=== PATIENT | male | born 1955 ===

== ENCOUNTER 2018-03-31 06:47 | Day surgery (SDC) | payer BC ==
[~2018-03-31 06:47] MED LIST: Buffered Lidocaine 0.9% SYRIN* 5 ML/SYR SYRINGE INTRADERM ONE
[2018-03-31] MEDS ORDERED: Midazolam* 1 MG/ML 2 ML VIAL (2 MG) ONE (07:59)
[2018-03-31 08:40] VITALS: BP 112/85
[2018-03-31] MEDS ORDERED: Ketorolac 0.5% OPHTH (NF) 0.5 % 5 ML BTL ONE (11:50)
[2018-03-31] MEDS ORDERED: Lidocaine 1%* 5 ML VIAL ONE (11:50)
[2018-03-31] MEDS ORDERED: Phenylephrine 2.5% OPTH.SOL* 2 ML BTL ONE (11:50)
[2018-03-31] MEDS ORDERED: Tropicamide 1% OPTH.SOL* BTL ONE (11:50)
[2018-03-31] MEDS ORDERED: Cyclopentolate 1% OPTH.SOL* 2 ML BTL ONE (11:50)
[2018-03-31] MEDS ORDERED: Tetracaine 0.5% OPTH.SOL 4 ML* 1 DROP BTL ONE (11:50)
[2018-03-31] MEDS ORDERED: Neomycin/Polymy/Dex OPHTH.OIN* 3.5 GM ONE (11:50)
--- NOTE | 2018-04-01 02:16 | OP ---
DATE OF OPERATION: 03/31/18 - [facility] DATE OF : 53 SURGEON: Sebastian Ovalle MD BEATER LEAD: None. ANESTHESIA: Topical with intravenous sedation. PRE-OP DIAGNOSIS: Cataract, right eye, with astigmatism. POST-OP DIAGNOSIS: Cataract, right eye, with astigmatism. OPERATIVE PROCEDURE: Phacoemulsification and cataract extraction with posterior chamber toric intraocular lens implant, right eye. COMPLICATIONS: None. ESTIMATED BLOOD LOSS: None. DESCRIPTION OF PROCEDURE: The patient was seen preoperatively, where he was placed in an upright position. A rachel was made at the 6 o'clock position of the cornea near the limbus of the right eye. The patient was subsequently brought to the operating room where he was given a small amount of intravenous sedation and a drop of tetracaine. He was prepped and draped in the usual sterile fashion for ophthalmic surgery and attention was directed to the right eye where a speculum was placed. A paracentesis was created at the 11 o'clock position and 0.12 cc of 1% preservative-free lidocaine was injected into the anterior chamber followed by DisCoVisc. The eye was digitally stabilized where a 2.75-mm keratome was used to create a triplanar clear corneal incision at the 9 o'clock position. A continuous curvilinear capsulorrhexis was created with a cystotome and Utrata forceps. BSS on a cannula was used to hydrodissect the lens from the capsule. Phacoemulsification was performed in a divide-and- conquer technique to create 4 fragments, which were removed. Residual cortical material was removed with irrigation and aspiration. Healon was used to inflate the capsular bag. A Barrett marker was used to rachel the 90-degree axis on the limbus. An SN6AT6 15.5 diopter lens was folded and inserted into the capsular bag. The lens was rotated in the proper axial alignment using a Sinskey hook. The Sinskey hook remained in the eye for the paracentesis to stabilize the lens while irrigation and aspiration was performed to remove viscoelastic from the eye. The Sinskey hook was removed. BSS on a cannula was used to hydrate the corneal stroma and seal the wound. At the end of the case, the pupil was round. The lens was centered, stable, and axially aligned. The eye pressure appeared normal. The wound was watertight. The speculum was removed and topical Maxitrol ointment was placed on the surface of the eye. The eye was closed, patched, and shielded, and the patient was sent to recovery room in stable condition with postop appointment and followup instructions given. [id number]/[facility] #: [id number] MTDD
== END 2018-03-31 08:43 | disposition home or self-care (01) ==
LOC: OREAST 06:47
PROVIDERS: ATTEND Ophthalmology
DX: H25.13 Age-related nuclear cataract, bilateral (principal); R03.0 Elevated blood-pressure reading, without diagnosis of hypertension; H25.813 Combined forms of age-related cataract, bilateral; H52.203 Unspecified astigmatism, bilateral; Z88.0 Allergy status to penicillin
CPT/HCPCS: A9270-GY; J2250; V2787

== ENCOUNTER 2018-04-07 10:00 | Day surgery (SDC) | payer BC ==
[~2018-04-07 10:00] MED LIST changes: +Acetaminophen TAB* 325 MG PO PRN
[2018-04-07] MEDS ORDERED: fentaNYL* 50 MCG/ML 2 ML VIAL (100 MCG VIAL) ONE (10:28)
[2018-04-07] MEDS ORDERED: Midazolam* 1 MG/ML 2 ML VIAL (2 MG) ONE (10:29)
[2018-04-07 11:41] VITALS: BP 139/87
[2018-04-07] MEDS ORDERED: Tetracaine 0.5% OPTH.SOL 4 ML* 1 DROP BTL ONE (14:06)
[2018-04-07] MEDS ORDERED: Tropicamide 1% OPTH.SOL* BTL ONE (14:06)
[2018-04-07] MEDS ORDERED: Neomycin/Polymy/Dex OPHTH.OIN* 3.5 GM ONE (14:06)
[2018-04-07] MEDS ORDERED: Ketorolac 0.5% OPHTH (NF) 0.5 % 5 ML BTL ONE (14:06)
[2018-04-07] MEDS ORDERED: Cyclopentolate 1% OPTH.SOL* 2 ML BTL ONE (14:06)
[2018-04-07] MEDS ORDERED: Lidocaine 1%* 5 ML VIAL ONE (14:06)
[2018-04-07] MEDS ORDERED: Phenylephrine 2.5% OPTH.SOL* 2 ML BTL ONE (14:06)
--- NOTE | 2018-04-08 05:52 | OP ---
DATE OF OPERATION: 04/07/18 - [facility] DATE OF : 53 SURGEON: Sebastian Ovalle MD SHEETER MACHINE OPERATOR: None. ANESTHESIA: Topical with intravenous sedation. PRE-OP DIAGNOSIS: Cataract with astigmatism, left eye. POST-OP DIAGNOSIS: Cataract with astigmatism, left eye. OPERATIVE PROCEDURE: Phacoemulsification and cataract extraction with posterior chamber toric intraocular lens implant, left eye. COMPLICATION: None. BLOOD LOSS: None. DESCRIPTION OF PROCEDURE: The patient was seen preoperatively in the holding area where he was placed in an upright position. A rachel was made at the 6 o' clock position of his left eye with a marking pen on the limbus. The patient was subsequently brought to the operating room. He was given a small amount of intravenous sedation. A drop of tetracaine was placed in his left eye. The patient was prepped and draped in the usual sterile fashion for ophthalmic surgery and attention was directed to the left eye where a speculum was placed. A paracentesis was created at the 5 o'clock position and 0.1 cc of 1% preservative-free lidocaine was injected into the anterior chamber followed by DisCoVisc. The eye was digitally stabilized while a 2.75 mm keratome was used to create a triplanar clear corneal incision at the 3 o'clock. A continuous curvilinear capsulorrhexis was created with a cystotome and Utrata forceps. BSS on a cannula was used to hydrodissect the lens from the capsule. Phacoemulsification was performed in a [id number] technique to create 4 fragments, which were removed. Cortical material was removed with irrigation and aspiration. Healon was used to inflate the capsular bag. A Barrett marker was used to rachel the 80-degree access on the limbus. An SN6AT6 15.0 diopter lens was folded and inserted into the capsular bag. It was dialed to the appropriate location using a Kanu hook. Irrigation and aspiration was performed to remove viscoelastic from the eye. The lens remained in the appropriate axial alignment. BSS on a cannula was used to hydrate the corneal stroma and seal the wound. At the end of the case, the pupil was round. The eye was of normal pressure and the wound was watertight. The lens was centered, stable and axially aligned. The speculum was removed from the eye and topical Maxitrol ointment was placed on the surface of the eye. The eye was closed, patched and shielded and the patient was sent to the recovery room in stable condition with postoperative instructions and followup appointment given. [id number]/[facility] #: [id number] JAYLIN
== END 2018-04-07 11:32 | disposition home or self-care (01) ==
LOC: OREAST 10:00
PROVIDERS: ATTEND Ophthalmology
DX: H25.12 Age-related nuclear cataract, left eye (principal); H52.202 Unspecified astigmatism, left eye; Z88.0 Allergy status to penicillin
CPT/HCPCS: A9270-GY; J2250; J3010; V2787